=== PATIENT | female | born 1990 ===

== ENCOUNTER 2017-02-26 00:46 | Inpatient (IN) | payer MEDICAID, OTHER ==
[2017-02-26 01:07] VITALS: BMI 24.2
--- NOTE | 2017-02-26 01:29 | OBHP ---
Datetime: 02/26/2017 01:25 IP Adm Impression: Term, intrauterine ; Active labor IP Admit Plan: Admit to unit; Initiate labor protocol Admit Comment, IP Provider: chief complaint-contractions HPI 26 y/o at 38.1 wga with c/o contractions .Patient denies vaginal bleeding or loss fof flu id.Reports active movement course uncomplicated ; care in [facility] PMH denies PSH denies OBGYN HX ; [id number] Social hx denies tobacco,alcohol or illicit drug use Exam see exam section A/P 26 y/o at 38.1 wga by stated perri with c/o contractions.Active labor.GBS negative -admit -see orders Pelvic Type - PN: Adequate Extremities - PN: Normal Abdomen - PN: Normal Back - PN: Normal Lungs - PN: Normal Heart - PN: Normal Neurologic - PN: Normal General - PN: Normal Contraction Comments Provider: irregular Gestation - Est Wks by US: 38.1 IP Hx Assessment: The History has been Reviewed and is Current EGA AdmitDate IP: 38.1 Vital Signs Provider: Reviewed; Within Normal Limits IP Chief Complaint: Uterine contractions FHR Category Provider Fetus A: Category I Dilatation, Provider: 4 Effacement, Provider: 90 Station, Provider: -2 Genitourinary Exam: Normal DTRs - PN: Normal
[2017-02-26] MEDS ORDERED: Lactated Ringer's 1,000 ML IV SCH (01:30)
[2017-02-26 02:04] LABS: BASO % 0.4 % (0.0-2.0); EOS # 0.3 K/uL (0.0-0.7); EOS % 2.4 % (0.0-4.0); HEMOGLOBIN 11.2 g/dL (11.0-16.0); LYMPH # 3.2 K/uL (1.0-4.3); LYMPH % 27.3 % (20.0-40.0); MEAN CELL VOLUME 84.6 fL (81.0-99.0); MEAN CORPUSCULAR HEMOGLOBIN 27.4 pg (27.0-31.0); MEAN CORPUSCULAR HGB CONC 32.4 g/dL (33.0-37.0); MEAN PLATELET VOLUME 9.5 fL (7.2-11.7); MONO # 0.9 K/uL (0.0-0.8); MONO % 7.5 % (0.0-10.0); NEUT # 7.3 K/uL (1.8-7.0); NEUT % 62.4 % (50.0-75.0); NRBC % 0.1 % (0.0-2.0); RBC 4.1 Mil/uL (3.80-5.20); RED CELL DISTRIBUTION WIDTH 15.4 % (11.5-14.5); WHITE BLOOD COUNT 11.6 K/uL (4.8-10.8)
[2017-02-26 02:10] LABS: ALBUMIN 3.2 g/dL (3.5-5.0)
[2017-02-26 02:13] LABS: AST/SGOT 30 U/L (14-36); GFR AFRICAN-AMERICAN > 60; GFR NON-AFRICAN AMERICAN > 60; SQUAMOUS EPITHIAL 1 /hpf (0-5); URINE BILIRUBIN NEGATIVE (NEGATIVE); URINE BLOOD NEGATIVE (NEGATIVE); URINE CLARITY Clear (Clear); URINE COLOR Colorless (YELLOW); URINE GLUCOSE (UA) NORMAL (Normal); URINE LEUKOCYTE ESTERASE NEG Leu/uL (Negative); URINE NITRATE NEGATIVE (NEGATIVE); URINE PROTEIN NEGATIVE (NEGATIVE); URINE UROBILINOGEN NORMAL mg/dL (0.2-1.0)
[2017-02-26 02:14] LABS: ALT/SGPT 27 U/L (9-52); BLOOD UREA NITROGEN 11 mg/dL (7-17); CALCIUM 8.8 mg/dl (8.6-10.4)
[2017-02-26] MEDS ORDERED: Lidocaine 2% Inj (20ml) ONE (02:23)
--- NOTE | 2017-02-26 02:54 | OBDS ---
DELIVERY PERSONNEL Delivery Doctor: William Robin MD Nurse Aide: CINDY Munoz MATERNAL INFORMATION Delivery Anesthesia: None Medications in Delivery: pitocin 20 units, methergine 0.2 mg Estimated Blood Loss (ml): 300 Placenta Cultured: No Maternal Complications: None Provider Comments: Patient rapidly progressed to fully.Delivered a a viable male from JENNIFER wit h spontaneous delivery of the body.Cord clamped and cut.Cord blood collected.Baby taken to the warmer .placenta spontaneously delivered.Uterus noted to be boggy.Im metehrgine 0.2 mg im given after which the uterus was noted to be firm.second degree perineal laceration and right and left labial laceratio n repaired with 2-0 chromic.Fundus firm.patient stable LABOR SUMMARY EDC: 03/11/2017 00:00 No. Babies in Womb: 1 Attempted: No Labor Anesthesia: None LABOR INFORMATION Reason for Induction: Not Applicable Onset of Labor: 02/25/2017 18:00 Complete Dilatation: 02/26/2017 02:13 Other Ripening Agents: n/a Oxytocin: N/A Group B Beta Strep: Negative Antibiotics # of Doses: 0 Steroids Given: None Reason Steroids Not Administered: Not Applicable MEMBRANES Membranes Rupture Method: Spontaneous Rupture of Membranes: 02/26/2017 02:14 Length of Rupture (hrs): 18.02 Amniotic Fluid Color: Light Meconium Amniotic Fluid Amount: Moderate Amniotic Fluid Odor: Normal STAGES OF LABOR Stage 1 hrs: 8 Stage 1 min: 13 Stage 2 hrs: 18 Stage 2 min: 2 Stage 3 hrs: -17 Stage 3 min: -52 Total Time in Labor hrs: 8 Total Time in Labor min: 23 VAGINAL DELIVERY Episiotomy: None Laceration Extension: Second Degree Laceration Type: Perineal Other Laceration: right and left labial Laceration Repair: Yes Laceration Repair Note: second degree perineal laceration and right and left labial laceration repai red with 2-0 chromic Sponge Count Correct: Yes; Vaginal Sweep Performed Sharps Count Correct: Yes BABY A INFORMATION Delivery Date/Time: 02/26/2017 20:15 Method of Delivery: Vaginal Born in Route : No : N/A Forceps: N/A Vacuum Extraction: N/A Shoulder Dystocia : No SHOULDER DYSTOCIA BABY A Infant Delivery Date/Time: 02/26/2017 20:15 PRESENTATION/POSITION BABY A Presentation: Cephalic Cephalic Presentation: Vertex Vertex Position: Right Occipital Anterior Breech Presentation: N/A PLACENTA INFORMATION BABY A Placenta Delivery Time : 02/26/2017 02:23 Placenta Method of Delivery: Spontaneous Placenta Status: Delivered SCORES BABY A Heart Rate 1 min: >100 bpm Resp Effort 1 min: Good Cry Reflex Irritability 1 min: Cough or Sneeze or Pulls Away Muscle Tone 1 min: Active Motion Color 1 min: Body Challenge[place], Extremities Blue SCORE 1 MIN: 9 Heart Rate 5 min: >100 bpm Resp Effort 5 min: Good Cry Reflex Irritability 5 min: Cough or Sneeze or Pulls Away Muscle Tone 5 min: Active Motion Color 5 min: Body Challenge[place], Extremities Blue SCORE 5 MIN: 9 INFANT INFORMATION BABY A Gestational Age at Delivery: 38.1 Gestational Status: Term Outcome : Liveborn Infant Condition : Stable Sex: Male IDENTIFICATION/MEDS BABY A ID Band Number: [id number] ID Band Location: Left Leg; Left Arm Sensor Applied: Yes Sensor Number: [id number] Sensor Location : Cord Clamp Vitamin K Given : Aquamephyton 1 mg IM Erythromycin Given: Given Both Eyes WEIGHT/LENGTH BABY A Infant Birthweight (gms): 2815 Infant Weight (lb): 6 Weight (oz): 3 Infant Length Inches: 18.25 Length cms: 46.4 CORD INFORMATION BABY A No. Cord Vessels: 3 Nuchal Cord : N/A Nuchal Cord Other: 0 True Knot: 0 Cord Blood Taken: Yes Infant Suction: None ASSESSMENT BABY A Complications: None Physical Findings at Delivery: Other
[2017-02-26] MEDS ORDERED: Acetaminophen-Codeine 300/30 mg Tab PO PRN (02:55)
[2017-02-26] MEDS ORDERED: Benzocaine/Menthol 20%-0.5% Topical Spray (60 ml) TOP PRN (02:55)
[2017-02-26] MEDS ORDERED: ceFAZolin IV 2 gm in Dextrose 1 GM/50 ML BAG IVPB SCH (03:00)
[2017-02-26] MEDS ORDERED: ceFAZolin IV 2 gm in Dextrose 1 GM/50 ML BAG IVPB ONE (03:00)
--- NOTE | 2017-02-26 07:51 | OBPPN ---
Datetime: 02/26/2017 07:47 PP Pain Prov: Within normal limits PP Nausea Prov: Denies PP Flatus Prov: Yes PP Abdomen/Uterus Prov: Normal PP Lochia Prov: Normal PP Extremities Prov: Normal PP Comments Phys Exam Prov: fudus below umblicus ext no edema,no calf ten PP Impression Prov: Normal progression PP Plan Prov: Continue present management PP Progress Note Prov: pt was seen at bed side, pain under control,no n/v, tolerating deit,voiding,m in lochia, flatus+ ppd#1 s/p cont care pain management encourage ambulation Vital Signs Provider PP: Reviewed; Within Normal Limits
[2017-02-26] MEDS ORDERED: Oxycodone/Acetaminophen 5/325 mg Tab PO PRN (08:29)
[2017-02-26] MEDS: Acetaminophen-Codeine 300/30 mg Tab PO PRN ×2 (08:43→14:38)
[2017-02-26] MEDS: Multiple Vitamins Tab PO SCH (10:16)
[2017-02-27 07:55] LABS: BASO % 0.4 % (0.0-2.0); EOS # 0.3 K/uL (0.0-0.7); EOS % 2.7 % (0.0-4.0); HEMOGLOBIN 10.5 g/dL (11.0-16.0); LYMPH # 2.8 K/uL (1.0-4.3); LYMPH % 24.8 % (20.0-40.0); MEAN CELL VOLUME 84.7 fL (81.0-99.0); MEAN CORPUSCULAR HEMOGLOBIN 27.6 pg (27.0-31.0); MEAN CORPUSCULAR HGB CONC 32.6 g/dL (33.0-37.0); MEAN PLATELET VOLUME 8.7 fL (7.2-11.7); MONO # 0.8 K/uL (0.0-0.8); MONO % 7.1 % (0.0-10.0); NEUT # 7.2 K/uL (1.8-7.0); RBC 3.79 Mil/uL (3.80-5.20); RED CELL DISTRIBUTION WIDTH 15.6 % (11.5-14.5); WHITE BLOOD COUNT 11.2 K/uL (4.8-10.8)
[2017-02-27] MEDS: Acetaminophen-Codeine 300/30 mg Tab PO PRN ×2 (10:01→17:05)
[2017-02-27] MEDS: Multiple Vitamins Tab PO SCH (10:02)
--- NOTE | 2017-02-27 11:45 | OBPPN ---
Datetime: 02/27/2017 08:36 PP Pain Prov: Within normal limits PP Nausea Prov: Denies PP Flatus Prov: Yes PP Heart Prov: Normal PP Lungs Prov: Normal PP Abdomen/Uterus Prov: Normal PP Lochia Prov: Normal PP CVA Tenderness Prov: Normal PP Extremities Prov: Normal PP C/S Incision Prov: Not Applicable PP Progress Prov: Normal PP Impression Prov: Normal progression PP Plan Prov: Continue present management PP Progress Note Prov: S-patient denies any complaints.denies nausea, vomiting, headache, chest pain , shortness of breath, numbness or tingling in hands and feet O-VSS afebrile Abdomen soft and nontener Fundus firm and below umbilcius extremities no calf tenderness A/P Patient s/p vaginal delivery ppd 1 doing well -continue routine care Vital Signs Provider PP: Reviewed; Within Normal Limits
[2017-02-28 08:42] VITALS: BP 103/71; PULSE 70; RESP 18; TEMP 97.8; O2SAT 98
[2017-02-28] MEDS: Multiple Vitamins Tab PO SCH (10:03)
--- NOTE | 2017-02-28 19:59 | OBDCSUM ---
Datetime: 02/28/2017 08:18 Discharged to, Provider: Home Follow up at, Provider: dr mcduffie Disch Instr Activity: Normal activity Disch Instr Diet: Regular Discharge Diet restrict Prov: none Discharge Diagnosis, Provider: Term Delivered Discharge Time: 02/28/2017 10:00 Follow up in weeks, Provider: 6 weeks (mason uribe) Disch Referrals: None Contraception discussed, Prov: Yes Disch Activity Restrictions: No exercising; No lifting; No sexual activity; Nothing in vagina - Inte rcourse, tampons, douche Discharge Diagnosis Prov Other: Anemia Contraception counseling Contraception after Delivery: IUD
--- NOTE | 2017-02-28 19:59 | OBPPN ---
Datetime: 02/28/2017 19:49 PP Pain Prov: Within normal limits PP Nausea Prov: Denies PP Flatus Prov: Yes PP BM Prov: Yes PP Breasts Prov: Normal PP Heart Prov: Normal PP Lungs Prov: Normal PP Abdomen/Uterus Prov: Normal PP Lochia Prov: Normal PP Vulva/Perineum Prov: Not Done PP CVA Tenderness Prov: Normal PP Extremities Prov: Normal PP C/S Incision Prov: Not Applicable PP Progress Prov: Normal PP Comments Phys Exam Prov: Breasts: no cracked nipples Abdomen: soft, non distended. fundus firm, mobile, nontender, 2 FB below umbilicus. Minimal lochia rubra All other systems reviewed and are negative PP Impression Prov: Normal progression PP Plan Prov: Discharge PP Progress Note Prov: Patient was seen and evaluated at approximately 0735 hours: received in chair . exclusively. Denies nausea or vomiting; voiding and ambulating without difficulty. P.E.: as above. WD in NAD. Awake, alert, oriented to time, person and place. Pleasant and cooperat olga - PPD#1 H/H 10.5/32.1 Rh(+) Assessment: PPD#2 26 y.o. P2, S/P . Afebrile, vital signs stable. Anemia - asymptomatic and hem odynamically stable. Interested in IUD for contraception. Clinically stable. Plan: 1) Discharge home 2) See full discharge instrucitons Vital Signs Provider PP: Reviewed; Within Normal Limits
== END 2017-02-28 11:45 | disposition home or self-care (01) | DRG 373 ==
LOC: C.EROB 00:46 → C.4D 01:23 → C.4M 07:57
PROVIDERS: ADMIT Student in an Organized Health Care Education/Training Program; ATTEND Student in an Organized Health Care Education/Training Program
PROC: 10E0XZZ Delivery of Products of Conception, External Approach (ICD-10-PCS; principal; 2017-02-26)
PROC: 0KQM0ZZ Repair Perineum Muscle, Open Approach (ICD-10-PCS; 2017-02-26)
DX: O77.0 Labor and delivery complicated by meconium in amniotic fluid (principal); O90.81 Anemia of the puerperium; O62.2 Other uterine inertia; O70.1 Second degree perineal laceration during delivery; Z3A.38 38 weeks gestation of pregnancy; Z37.0 Single live birth

== ENCOUNTER 2018-03-31 20:42 | Observation (INO) | payer OTHER ==
[2018-03-31 20:42] VITALS: BMI 21.7
[2018-03-31] MEDS ORDERED: Sodium Chloride 0.9% 1,000 ML IV ONE (21:56)
[2018-03-31 21:59] LABS: BASO # 0.1 K/uL (0.0-0.2); EOS # 0.3 K/uL (0.0-0.7); HEMOGLOBIN 13.5 g/dL (11.0-16.0); LYMPH # 3.1 K/uL (1.0-4.3); LYMPH % 37.9 % (20.0-40.0); MEAN CELL VOLUME 88.3 fL (81.0-99.0); MEAN CORPUSCULAR HEMOGLOBIN 29.7 pg (27.0-31.0); MEAN CORPUSCULAR HGB CONC 33.6 g/dL (33.0-37.0); MONO # 0.5 K/uL (0.0-0.8); MONO % 6.5 % (0.0-10.0); NEUT # 4.1 K/uL (1.8-7.0); NEUT % 50.6 % (50.0-75.0); NRBC % 0.2 % (0.0-2.0); RBC 4.56 Mil/uL (3.80-5.20); RED CELL DISTRIBUTION WIDTH 13.5 % (11.5-14.5); WHITE BLOOD COUNT 8.1 K/uL (4.8-10.8)
--- NOTE | 2018-03-31 22:00 | C.PDOC ---
History Of Present Illness Patient comes to ER with complaints of abdominal pain with associated nausea, vomiting, diarrhea and weight loss. She states she is currently undergoing treatment for H. Pylori and is on her second day of antibiotics. Otherwise, no fever, chills, chest pain or shortness of breath. Time Seen by Provider: 03/31/18 22:00 Chief Complaint (Nursing): Abdominal Pain History Per: Patient History/Exam Limitations: no limitations Onset/Duration Of Symptoms: Days (2) Current Symptoms Are (Timing): Still Present Context: Other Severity: Moderate Pain Scale Rating Of: 4 Location Of Pain/Discomfort: Diffuse Radiation Of Pain To:: None Quality Of Discomfort: "Pain" Associated Symptoms: Nausea, Vomiting, Diarrhea. denies: Fever, Chills, Chest Pain Exacerbating Factors: None Alleviating Factors: None Last Bowel Movement: Today Additional History Per: Patient Abnormal Vaginal Bleeding: No Past Medical History Reviewed: Historical Data, Nursing Documentation, Vital Signs Vital Signs: Last Vital Signs Temp 98.5 F 04/01/18 03:37 Pulse 74 04/01/18 03:37 Resp 18 04/01/18 03:37 BP 94/58 L 04/01/18 03:37 Pulse Ox 100 04/01/18 04:07 - Medical History PMH: No Chronic Diseases Denies: Chronic Kidney Disease Surgical History: No Surg Hx - [facility] Procedures DELIVERY OF PRODUCTS OF CONCEPTION, EXTERNAL APPROACH (02/26/17) REPAIR PERINEUM MUSCLE, OPEN APPROACH (02/26/17) Family History: States: No Known Family Hx - Social History Hx Tobacco Use: No Hx Alcohol Use: No Hx Substance Use: No - Immunization History Hx Tetanus Toxoid Vaccination: No Hx Influenza Vaccination: No Hx Pneumococcal Vaccination: No Review Of Systems Constitutional: Negative for: Fever, Chills Cardiovascular: Negative for: Chest Pain Respiratory: Negative for: Shortness of Breath Gastrointestinal: Positive for: Nausea, Vomiting, Abdominal Pain, Diarrhea. Negative for: Constipation Genitourinary: Negative for: Dysuria, Frequency, Hematuria Musculoskeletal: Negative for: Back Pain Skin: Negative for: Rash Neurological: Negative for: Weakness Psych: Negative for: Anxiety Physical Exam - Physical Exam Appears: Non-toxic, No Acute Distress Skin: Warm Head: Normacephalic Eye(s): bilateral: Normal Inspection Oral Mucosa: Moist Neck: Supple Chest: Symmetrical Cardiovascular: Rhythm Regular Respiratory: No Rales, No Rhonchi, No Wheezing Gastrointestinal/Abdominal: Soft, Tenderness (diffuse tenderness, more present on left upper quadrant), No Distention, No Guarding, No Rebound Back: Normal Inspection Extremity: Normal ROM, No Pedal Edema Extremity: Bilateral: Atraumatic Neurological/Psych: Oriented x3 Gait: Steady ED Course And Treatment - Laboratory Results Result Diagrams: 03/31/18 21:54 03/31/18 21:54 O2 Sat by Pulse Oximetry: 100 (RA) Pulse Ox Interpretation: Normal - CT Scan/US CT Abdomen/Pelvis Other Rad Studies (CT/US): Radiology Report Reviewed CT/US Interpretation: FINDINGS: Lung bases: Unremarkable. No mass. No consolidation. ABDOMEN: Liver: Unremarkable. No mass. Gallbladder and bile ducts: Gallbladder thickening and trace pericholecystic change suggest acute. cholecystitis. No calcified gallstone. No ductal dilation. Pancreas: Unremarkable. No mass. No ductal dilation. Spleen: Unremarkable. No splenomegaly. Adrenals: Unremarkable. No mass. Kidneys and ureters: Unremarkable. No solid mass. No hydronephrosis. Stomach and bowel: Unremarkable. No obstruction. No mucosal thickening. PELVIS: Appendix: No findings to suggest acute appendicitis. Bladder: Unremarkable. No mass. Reproductive: Unremarkable as visualized. ABDOMEN and PELVIS: Intraperitoneal space: Unremarkable. No free air. No significant fluid collection. Bones/joints : No acute fracture. No dislocation. Soft tissues: Unremarkable. Vasculature: Unremarkable. No abdominal aortic aneurysm. Lymph nodes: Unremarkable. No enlarged lymph nodes. Tubes, lines and devices: Intrauterine device is present. IMPRESSION: Gallbladder thickening and trace pericholecystic change suggest acute cholecystitis. No calcified. gallstone. Progress Note: Labs and UA ordered. Patient given Zofran, Protonix and IV fluids. Disposition Discussed With : Phyllis Hickey Comment: accepted the pt on her service and took over the care at 4:16 AM Doctor Will See Patient In The: ED Counseled Patient/Family Regarding: Studies Performed, Diagnosis - Disposition Disposition: HOSPITALIZED Disposition Time: 22:00 Condition: FAIR Forms: [facility] (Malawian) - POA Present On Arrival: Poor Glycemic Control - Clinical Impression Clinical Impression: Abdominal pain, Biliary colic, Acute cholecystitis - Scribe Statement The provider has reviewed the documentation as recorded by the Esa Hirsch Provider Attestation: All medical record entries made by the Scribe were at my direction and personally dictated by me. I have reviewed the chart and agree that the record accurately reflects my personal performance of the history, physical exam, medical decision making, and the department course for this patient. I have also personally directed, reviewed, and agree with the discharge instructions and disposition. Decision To Admit - Pt Status Changed To: Hospital Disposition Of: Inpatient - Admit Certification Admit to Inpatient:: After my assessment, the patient will require hospitalization for at least two midnights. This is because of the severity of symptoms shown, intensity of services needed, and/or the medical risk in this patient being treated as an outpatient. - InPatient: Physician Admission Certification:: After my assessment, the patient will require hospitalization for at least two midnights. This is because of the severity of symptoms shown, intensity of services needed, and/or the medical risk in this patient being treated as an outpatient. - . Bed Request Type: Regular Admitting Physician: Phyllis Hickey Patient Diagnosis: Abdominal pain, Biliary colic, Acute cholecystitis
[2018-03-31 22:17] LABS: ALB/GLOB RATIO 1.4 (1.0-2.1); ALBUMIN 4.4 g/dL (3.5-5.0); ALT/SGPT 89 U/L (9-52); AST/SGOT 101 U/L (14-36); BLOOD UREA NITROGEN 13 mg/dL (7-17); CALCIUM 8.9 mg/dl (8.6-10.4); GFR NON-AFRICAN AMERICAN > 60
[2018-03-31 22:19] LABS: SQUAMOUS EPITHIAL 7 /hpf (0-5); URINE BILIRUBIN NEGATIVE (NEGATIVE); URINE BLOOD NEGATIVE (NEGATIVE); URINE CLARITY Clear (Clear); URINE COLOR Yellow (YELLOW); URINE GLUCOSE (UA) NORMAL (Normal); URINE LEUKOCYTE ESTERASE TRACE Leu/uL (Negative); URINE PROTEIN NEGATIVE (NEGATIVE)
[2018-03-31] MEDS ORDERED: Sodium Chloride 0.9% 1,000 ML ONE (22:25)
[2018-04-01] MEDS ORDERED: Iodixanol 320 MG/ML 100 ML BOTTLE IV ONE (01:19)
[2018-04-01] MEDS ORDERED: Piperacillin/Tazobact 3.375 gm 100 ML IVPB STA (04:18)
[2018-04-01] MEDS ORDERED: Piperacillin/Tazobact 3.375 gm 100 ML IVPB ONE (04:24)
[2018-04-01] MEDS ORDERED: Lactated Ringer's 1,000 ML IV SCH (06:30)
[2018-04-01] MEDS ORDERED: Morphine 4 MG/ML VIAL IVP SCH (06:30)
[2018-04-01 06:44] LABS: BASO # 0.1 K/uL (0.0-0.2); BASO % 1.1 % (0.0-2.0); EOS # 0.1 K/uL (0.0-0.7); EOS % 1.3 % (0.0-4.0); HEMOGLOBIN 13.1 g/dL (11.0-16.0); LYMPH # 1.6 K/uL (1.0-4.3); LYMPH % 27.7 % (20.0-40.0); MEAN CELL VOLUME 87.5 fL (81.0-99.0); MEAN CORPUSCULAR HEMOGLOBIN 30.2 pg (27.0-31.0); MEAN CORPUSCULAR HGB CONC 34.5 g/dL (33.0-37.0); MEAN PLATELET VOLUME 7.9 fL (7.2-11.7); MONO # 0.6 K/uL (0.0-0.8); MONO % 10.9 % (0.0-10.0); NEUT # 3.5 K/uL (1.8-7.0); NRBC % 0.1 % (0.0-2.0); RBC 4.34 Mil/uL (3.80-5.20); RED CELL DISTRIBUTION WIDTH 13.7 % (11.5-14.5); WHITE BLOOD COUNT 5.9 K/uL (4.8-10.8)
[2018-04-01 07:02] LABS: ALB/GLOB RATIO 1.5 (1.0-2.1); ALBUMIN 4.3 g/dL (3.5-5.0); ALT/SGPT 613 U/L (9-52); BLOOD UREA NITROGEN 7 mg/dL (7-17); GFR NON-AFRICAN AMERICAN > 60
[2018-04-01 07:09] LABS: AST/SGOT 1082 U/L (14-36)
--- NOTE | 2018-04-01 08:56 | CP.PCM.HP ---
History of Present Illness - History of Present Illness History of Present Illness: History and Physical for Dr. Hickey CC: abdominal pain Late Entry, patient seen and examined in the ED at 0445 Pt is a 27F with PMH of newly diagnosed gastritis with H pylori at [facility] who initiated triple therapy as an outpatient 2 days ago who presents to the ED with upper abdominal pain for acute worsened the day before with nausea and vomiting 2-3 times non-bloody, non-bilious emesis. Patient states that she has had this epigastric pain for 1 month off and on with non- bloody diarrhea, but that the pain acute worsened yesterday, so she came the ER. Pain radiates to her bilateral shoulders. Denies any fevers, chills, melena , hematochezia, or any other symptoms. Pain improved with IV protonix PMH: Gastritis, H. Pylori PSH: denies ALL: ibuprofen--rash Social: Denies any substance use Present on Admission - Present on Admission Any Indicators Present on Admission: No Review of Systems - Review of Systems All systems: reviewed and no additional remarkable complaints except (as per HPI ) Past Patient History - Infectious Disease Hx of Infectious Diseases: None - Past Medical History & Family History Past Medical History?: Yes Past Family History: Reviewed and not pertinent - Past Social History Smoking Status: Never Smoked Alcohol: None Drugs: Denies - CARDIAC Hx Cardiac Disorders: No - PULMONARY Hx Respiratory Disorders: No - NEUROLOGICAL Other/Comment: epilepsy - HEENT Hx HEENT Problems: No - RENAL Hx Chronic Kidney Disease: No - ENDOCRINE/METABOLIC Hx Endocrine Disorders: No - HEMATOLOGICAL/ONCOLOGICAL Hx Blood Disorders: No - INTEGUMENTARY Hx Dermatological Problems: No - MUSCULOSKELETAL/RHEUMATOLOGICAL Hx Musculoskeletal Disorders: No - GASTROINTESTINAL Hx Gastrointestinal Disorders: No - GENITOURINARY/GYNECOLOGICAL Hx Genitourinary Disorders: No - PSYCHIATRIC Hx Substance Use: No - SURGICAL HISTORY Hx Surgeries: No - ANESTHESIA Hx Anesthesia: No Meds Allergies/Adverse Reactions: Allergies Allergy/AdvReac Type Severity Reaction Status Date / Time ibuprofen Allergy Intermediate SKIN RASHES Verified 03/31/18 20:57 Physical Exam - Constitutional Appears: Well, Non-toxic, No Acute Distress - Head Exam Head Exam: ATRAUMATIC, NORMOCEPHALIC - Eye Exam Eye Exam: Normal appearance. absent: Conjunctival injection, Scleral icterus - ENT Exam ENT Exam: Mucous Membranes Moist, Normal Oropharynx - Respiratory Exam Respiratory Exam: NORMAL BREATHING PATTERN. absent: Accessory Muscle Use, Respiratory Distress - Cardiovascular Exam Cardiovascular Exam: RRR - GI/Abdominal Exam GI & Abdominal Exam: Distended, Soft, Tenderness (epigastrium). absent: Rebound Additional comments: negative yoder's, no RUQ tenderness - Extremities Exam Extremities exam: Positive for: pedal pulses present. Negative for: calf tenderness, pedal edema - Back Exam Back exam: absent: CVA tenderness (L), CVA tenderness (R) - Neurological Exam Neurological exam: Alert, Oriented x3 - Psychiatric Exam Psychiatric exam: Normal Affect, Normal Mood - Skin Skin Exam: Dry, Intact, Normal Color, Warm Results - Vital Signs Recent Vital Signs: Last Vital Signs Temp 99.0 F 04/01/18 07:30 Pulse 67 04/01/18 07:30 Resp 18 04/01/18 07:30 BP 97/60 L 04/01/18 07:30 Pulse Ox 100 04/01/18 07:30 - Labs Result Diagrams: 04/01/18 06:40 04/01/18 06:40 Labs: Laboratory Results - last 24 hr 03/31/18 03/31/18 03/31/18 21:54 21:54 21:54 WBC 8.1 RBC 4.56 Hgb 13.5 Hct 40.3 MCV 88.3 MCH 29.7 MCHC 33.6 RDW 13.5 Plt Count 294 MPV 8.0 Neut % (Auto) 50.6 Lymph % (Auto) 37.9 [place] % (Auto) 6.5 Eos % (Auto) 4.0 Baso % (Auto) 1.0 Neut # (Auto) 4.1 Lymph # (Auto) 3.1 [place] # (Auto) 0.5 Eos # (Auto) 0.3 Baso # (Auto) 0.1 Sodium 143 Potassium 3.8 Chloride 105 Carbon Dioxide 22 Anion Gap 20 BUN 13 Creatinine 0.6 L Est GFR ( Amer) > 60 Est GFR (Non-Af Amer) > 60 Random Glucose 110 H Calcium 8.9 Phosphorus Magnesium Total Bilirubin 0.4 AST 101 H ALT 89 H D Alkaline Phosphatase 142 H Total Protein 7.5 Albumin 4.4 Globulin 3.1 Albumin/Globulin Ratio 1.4 Lipase Urine Color Yellow Urine Clarity Clear Urine pH 5.0 Ur Specific [place] 1.018 Urine Protein Negative Urine Glucose (UA) Normal Urine Ketones Negative Urine Blood Negative Urine Nitrate Negative Urine Bilirubin Negative Urine Urobilinogen 2.0 H Ur Leukocyte Esterase Trace Urine WBC (Auto) 1 Urine RBC (Auto) < 1 Ur Squamous Epith Cells 7 H 03/31/18 04/01/18 04/01/18 22:28 06:40 06:40 WBC 5.9 RBC 4.34 Hgb 13.1 Hct 38.0 MCV 87.5 MCH 30.2 MCHC 34.5 RDW 13.7 Plt Count 298 MPV 7.9 Neut % (Auto) 59.0 Lymph % (Auto) 27.7 [place] % (Auto) 10.9 H Eos % (Auto) 1.3 Baso % (Auto) 1.1 Neut # (Auto) 3.5 Lymph # (Auto) 1.6 [place] # (Auto) 0.6 Eos # (Auto) 0.1 Baso # (Auto) 0.1 Sodium Potassium Chloride Carbon Dioxide Anion Gap BUN Creatinine Est GFR ( Amer) Est GFR (Non-Af Amer) Random Glucose Calcium Phosphorus 4.4 Magnesium 1.9 Total Bilirubin AST ALT Alkaline Phosphatase Total Protein Albumin Globulin Albumin/Globulin Ratio Lipase 80 Urine Color Urine Clarity Urine pH Ur Specific [place] Urine Protein Urine Glucose (UA) Urine Ketones Urine Blood Urine Nitrate Urine Bilirubin Urine Urobilinogen Ur Leukocyte Esterase Urine WBC (Auto) Urine RBC (Auto) Ur Squamous Epith Cells 04/01/18 06:40 WBC RBC Hgb Hct MCV MCH MCHC RDW Plt Count MPV Neut % (Auto) Lymph % (Auto) [place] % (Auto) Eos % (Auto) Baso % (Auto) Neut # (Auto) Lymph # (Auto) [place] # (Auto) Eos # (Auto) Baso # (Auto) Sodium 142 Potassium 3.8 Chloride 106 Carbon Dioxide 21 L Anion Gap 19 BUN 7 Creatinine 0.6 L Est GFR ( Amer) > 60 Est GFR (Non-Af Amer) > 60 Random Glucose 98 Calcium 9.0 Phosphorus Magnesium Total Bilirubin 1.6 H AST 1082 H ALT 613 H D Alkaline Phosphatase 203 H D Total Protein 7.2 Albumin 4.3 Globulin 2.9 Albumin/Globulin Ratio 1.5 Lipase Urine Color Urine Clarity Urine pH Ur Specific [place] Urine Protein Urine Glucose (UA) Urine Ketones Urine Blood Urine Nitrate Urine Bilirubin Urine Urobilinogen Ur Leukocyte Esterase Urine WBC (Auto) Urine RBC (Auto) Ur Squamous Epith Cells - Imaging and Cardiology CT scan - abdomen Status: Image reviewed by me, Report reviewed by me Additional comment: possible trace pericholecystic fluid, mildly thickened gallbladder wall US - abdomen Status: Image reviewed by me, Report reviewed by me Additional comment: gallbladder with multiple stones & thickened wall Assessment & Plan (1) Cholelithiasis Status: Acute Priority: High (2) Gastritis, Helicobacter pylori Status: Acute Priority: Medium (3) Abdominal pain Status: Acute Priority: High - Assessment and Plan (Free Text) Assessment: 27F with PMH of current H. Pylori being treated with antibiotics and PPI and cholelithiasis vs acute cholecystitis vs gastritis flare Plan: F/U official reports of the CT and the ultrasound Trend CBC and CMP Monitor abdominal exam and vitals Admit to med/surgery as observation IVF IV antibiotics PRN pain and nausea medication Continue outpatient H. Pylori therapy Re-evaluate patient's clinical picture and labs to evaluate for acute cholecystitis vs symptomatic cholelithiasis vs gastritis--Plans for conservative management vs OR pending clinical picture Further recommendations per Dr. Ruperto Jerome, PGY2 - Date & Time Date: 04/01/18 Time: 04:45
--- NOTE | 2018-04-01 09:32 | CT ---
Date of service: 04/01/2018 PROCEDURE: CT Abdomen and Pelvis without intravenous contrast HISTORY: Abdominal pain COMPARISON: CT abdomen and pelvis dated 12/17/2015 TECHNIQUE: Multiple contiguous axial images were performed through the abdomen and pelvis with the use of intravenous contrast. Subsequently, sagittal and coronal reformatted images were obtained. Radiation dose: Total exam DLP = 220 mGy-cm. This CT exam was performed using one or more of the following dose reduction techniques: Automated exposure control, adjustment of the mA and/or kV according to patient size, and/or use of iterative reconstruction technique. FINDINGS: LOWER THORAX: Unremarkable. LIVER: Unremarkable. No gross lesion or ductal dilatation. GALLBLADDER AND BILE DUCTS: Gallbladder wall thickening and trace pericholecystic fluid suggestive for acute cholecystitis. No gross calcified gallstone identified. No ductal dilatation. PANCREAS: Unremarkable. No gross lesion or ductal dilatation. SPLEEN: Unremarkable. ADRENALS: Unremarkable. No mass. KIDNEYS AND URETERS: Unremarkable. No hydronephrosis. No solid mass. VASCULATURE: Unremarkable. No aortic aneurysm. BOWEL: Unremarkable. No obstruction. No gross mural thickening. APPENDIX: No findings to suggest acute appendicitis. PERITONEUM: Unremarkable. No free fluid. No free air. LYMPH NODES: Unremarkable. No enlarged lymph nodes. BLADDER: Unremarkable. REPRODUCTIVE: Unremarkable. BONES: No acute fracture. OTHER FINDINGS: Intrauterine device is present. IMPRESSION: Gallbladder wall thickening and trace pericholecystic fluid suggestive for possible acute cholecystitis. No gross calcified gallstone identified. Correlation with right upper quadrant abdominal ultrasound may helpful further evaluation if clinically indicated. Additional findings as above. These findings were preliminarily reported at 4 a.m. on 04/01/[address] Maged Lee from [employer].
--- NOTE | 2018-04-01 09:54 | US ---
Right upper quadrant abdominal ultrasound History: Cholelithiasis. Comparison: CT of the abdomen and pelvis dated 04/01/2018 Technique: Real-time sonography was performed through the right upper quadrant of the abdomen. Findings Liver: 14.5 centimeters in length. Normal echogenicity. Gallbladder: Gallbladder appears packed with gallstones with a somewhat masslike consolidation suggestive for prominent cholelithiasis. Gallbladder wall thickening measuring up to 5 millimeters. Associated gallbladder wall edema. Common bile duct measures 3 millimeters. Limited visualization of the pancreas. Visualized aorta and IVC are preserved. Right kidney: 8.7 x 3.5 x 4.8 centimeters. No calculi or hydronephrosis. Impression: Prominent cholelithiasis with a somewhat masslike consolidation with thickening of the gallbladder wall concerning for acute cholecystitis. Clinical correlation. These findings were preliminarily reported at 7:12 a.m. on 04/01/[address] Didier Nieves from [facility].
[2018-04-01] MEDS: Pantoprazole 40 mg EC Tab PO SCH ×2 (10:59→18:05)
[2018-04-01] MEDS ORDERED: Propofol 10 mg/ml Inj (20 ML) ONE (13:07)
[2018-04-01] MEDS ORDERED: Midazolam 2 MG/2 ML VIAL ONE (13:07)
[2018-04-01] MEDS ORDERED: Rocuronium 10 mg/ml (10 ml) ONE (13:38)
[2018-04-01] MEDS ORDERED: Succinylcholine Chloride 20 mg/ml Syr (5 ml) IV ONE (13:38)
[2018-04-01] MEDS ORDERED: Lidocaine Hydrochloride 5 ML INJ ONE (13:38)
[2018-04-01] MEDS ORDERED: Lactated Ringer's 1,000 ML IV ONE (14:22)
[2018-04-01] MEDS: HYDROmorphone 0.5 mg/0.5 ml ISec IVP PRN ×2 (14:50→15:05)
[2018-04-01] MEDS ORDERED: DiphenhydrAMINE 50 mg/ml Inj IVP STA (16:05)
[2018-04-01] MEDS ORDERED: DiphenhydrAMINE 50 mg/ml Inj ONE (16:12)
[2018-04-01] MEDS: Lactated Ringer's 1,000 ML IV SCH ×2 (17:00→21:39)
[2018-04-01 17:01] VITALS: RESP 20
--- NOTE | 2018-04-01 17:05 | PCM.SURG1 ---
Surgeon's Initial Post Op Note - Surgeon's Notes Surgeon: Tracey Hickey Building Construction Inspector: Romario Mejia PGY3 Type of Anesthesia: General Endo Anesthesia Administered By: Tano Pre-Operative Diagnosis: cholelithiasis Operative Findings: multiple gallstones Post-Operative Diagnosis: cholelithiasis Operation Performed: laparoscopic cholecystectomy Specimen/Specimens Removed: gallbladder Estimated Blood Loss: EBL {In ML}: 10 Blood Products Given: N/A Drains Used: No Drains Post-Op Condition: Good Date of Surgery/Procedure: 04/01/18 Time of Surgery/Procedure: 14:00
[2018-04-01] MEDS: Morphine 4 MG/ML VIAL IVP PRN (19:29)
[2018-04-02] MEDS: Morphine 4 MG/ML VIAL IVP PRN ×2 (00:23→09:39)
[2018-04-02 00:27] VITALS: O2SAT 99
[2018-04-02] MEDS: Lactated Ringer's 1,000 ML IV SCH ×2 (04:57→10:45)
--- NOTE | 2018-04-02 05:06 | OP ---
Copied To: Phyllis Hickey MD Attending MD: Phyllis Hickey MD PROCEDURE DATE: 04/01/2018 PREOPERATIVE DIAGNOSIS: Cholelithiasis. POSTOPERATIVE DIAGNOSIS: Cholelithiasis. PROCEDURE: Laparoscopic cholecystectomy. SURGEON: Phyllis Hickey MD. RESOLUTION MANAGER: Jovanny Mejia DO. ANESTHESIA: General. ANESTHESIA ADMINISTERED BY: Dr. Freedman DESCRIPTION OF OPERATION: With the patient in the supine position under adequate general anesthesia, the abdomen was prepped and draped in the usual sterile manner. Veress needle puncture was performed at the umbilicus with insufflation to 15 cm water pressure of CO2 and a 10 mm laparoscopic trocar was inserted via an infraumbilical incision. Under direct vision, additional trocars were inserted in the epigastrium and right costal margin. The gallbladder was visualized. It was not acutely inflamed although there were adhesions to the peritoneal surface of the gallbladder consistent with recent inflammation. The gallbladder fundus was grasped and elevated. A number of lobulated stones were noted within the gallbladder including in the area of the infundibulum. The infundibular stones were elevated out of the infundibulum, and the infundibulum was grasped and retracted laterally. The infundibulum was noted to be a elongated and tortuous, and the cystic duct was carefully dissected and identified freeing up areas itself and the gallbladder was then cleared circumferential. The cystic duct was then followed proximally into the gallbladder and distally down towards the common bile duct. The cystic artery was also identified, and the anterior branch of the cystic artery was triply clipped and divided to allow full identification of the cystic duct. A cystic duct was then completely dissected and triply clipped and divided, and the gallbladder was dissected free of the liver bed using electrocautery. The posterior branch of the cystic artery was also identified within the peritoneal fold and this also was triply clipped and divided. The liver bed was inspected for hemostasis and the dissection was completed. The gallbladder was placed in a specimen retrieval bag and removed via the umbilical port site. The pneumoperitoneum was released and the trocars removed. The umbilical port site was closed with a [id number] fascial suture of 0 Vicryl. All incisions were closed with 4-0 Monocryl subcuticular sutures and Steri-Strips. Dry sterile dressings were applied. The patient tolerated the procedure well and transferred to the recovery room in stable condition. Estimated blood loss for the procedure was 10 mL. Phyllis Hickey MD
--- NOTE | 2018-04-02 07:09 | CP.PCM.DIS ---
Provider - Provider Date of Admission: 04/01/18 04:15 Attending physician: Phyllis Hickey MD Hospital Course - Lab Results Lab Results: Most Recent Lab Values WBC 5.9 K/uL (4.8-10.8) 04/01/18 06:40 RBC 4.34 Mil/uL (3.80-5.20) 04/01/18 06:40 Hgb 13.1 g/dL (11.0-16.0) 04/01/18 06:40 Hct 38.0 % (34.0-47.0) 04/01/18 06:40 MCV 87.5 fL (81.0-99.0) 04/01/18 06:40 MCH 30.2 pg (27.0-31.0) 04/01/18 06:40 MCHC 34.5 g/dL (33.0-37.0) 04/01/18 06:40 RDW 13.7 % (11.5-14.5) 04/01/18 06:40 Plt Count 298 K/uL (130-400) 04/01/18 06:40 MPV 7.9 fL (7.2-11.7) 04/01/18 06:40 Neut % (Auto) 59.0 % (50.0-75.0) 04/01/18 06:40 Lymph % (Auto) 27.7 % (20.0-40.0) 04/01/18 06:40 [place] % (Auto) 10.9 % (0.0-10.0) H 04/01/18 06:40 Eos % (Auto) 1.3 % (0.0-4.0) 04/01/18 06:40 Baso % (Auto) 1.1 % (0.0-2.0) 04/01/18 06:40 Neut # (Auto) 3.5 K/uL (1.8-7.0) 04/01/18 06:40 Lymph # (Auto) 1.6 K/uL (1.0-4.3) 04/01/18 06:40 [place] # (Auto) 0.6 K/uL (0.0-0.8) 04/01/18 06:40 Eos # (Auto) 0.1 K/uL (0.0-0.7) 04/01/18 06:40 Baso # (Auto) 0.1 K/uL (0.0-0.2) 04/01/18 06:40 Sodium 142 mmol/L (132-148) 04/01/18 06:40 Potassium 3.8 mmol/L (3.6-5.2) 04/01/18 06:40 Chloride 106 mmol/L (98-107) 04/01/18 06:40 Carbon Dioxide 21 mmol/L (22-30) L 04/01/18 06:40 Anion Gap 19 (10-20) 04/01/18 06:40 BUN 7 mg/dL (7-17) 04/01/18 06:40 Creatinine 0.6 mg/dL (0.7-1.2) L 04/01/18 06:40 Est GFR ( Amer) > 60 04/01/18 06:40 Est GFR (Non-Af Amer) > 60 04/01/18 06:40 Random Glucose 98 mg/dL (65-105) 04/01/18 06:40 Calcium 9.0 mg/dl (8.6-10.4) 04/01/18 06:40 Phosphorus 4.4 mg/dL (2.5-4.5) 04/01/18 06:40 Magnesium 1.9 mg/dL (1.6-2.3) 04/01/18 06:40 Total Bilirubin 1.6 mg/dL (0.2-1.3) H 04/01/18 06:40 AST 1082 U/L (14-36) H 04/01/18 06:40 ALT 613 U/L (9-52) H D 04/01/18 06:40 Alkaline Phosphatase 203 U/L (38-126) H D 04/01/18 06:40 Total Protein 7.2 g/dL (6.3-8.3) 04/01/18 06:40 Albumin 4.3 g/dL (3.5-5.0) 04/01/18 06:40 Globulin 2.9 gm/dL (2.2-3.9) 04/01/18 06:40 Albumin/Globulin Ratio 1.5 (1.0-2.1) 04/01/18 06:40 Lipase 80 U/L (23-300) 03/31/18 22:28 Urine Color Yellow (YELLOW) 03/31/18 21:54 Urine Clarity Clear (Clear) 03/31/18 21:54 Urine pH 5.0 (5.0-8.0) 03/31/18 21:54 Ur Specific [place] 1.018 (1.003-1.030) 03/31/18 21:54 Urine Protein Negative mg/dL (NEGATIVE) 03/31/18 21:54 Urine Glucose (UA) Normal mg/dL (Normal) 03/31/18 21:54 Urine Ketones Negative mg/dL (NEGATIVE) 03/31/18 21:54 Urine Blood Negative (NEGATIVE) 03/31/18 21:54 Urine Nitrate Negative (NEGATIVE) 03/31/18 21:54 Urine Bilirubin Negative (NEGATIVE) 03/31/18 21:54 Urine Urobilinogen 2.0 mg/dL (0.2-1.0) H 03/31/18 21:54 Ur Leukocyte Esterase Trace Saritha/uL (Negative) 03/31/18 21:54 Urine WBC (Auto) 1 /hpf (0-5) 03/31/18 21:54 Urine RBC (Auto) < 1 /hpf (0-3) 03/31/18 21:54 Ur Squamous Epith Cells 7 /hpf (0-5) H 03/31/18 21:54 Urine HCG, Qual Negative (NEGATIVE) 04/01/18 12:29 Discharge Exam - Head Exam Head Exam: ATRAUMATIC, NORMOCEPHALIC Discharge Plan - Follow Up Plan Condition: FAIR Disposition: HOME/ ROUTINE
[2018-04-02 07:23] LABS: BASO % 0.5 % (0.0-2.0); EOS # 0.2 K/uL (0.0-0.7); HEMOGLOBIN 12.7 g/dL (11.0-16.0); LYMPH # 1.7 K/uL (1.0-4.3); LYMPH % 20.6 % (20.0-40.0); MEAN CELL VOLUME 87.8 fL (81.0-99.0); MEAN CORPUSCULAR HEMOGLOBIN 30.3 pg (27.0-31.0); MEAN CORPUSCULAR HGB CONC 34.6 g/dL (33.0-37.0); MEAN PLATELET VOLUME 8.1 fL (7.2-11.7); MONO # 0.4 K/uL (0.0-0.8); MONO % 5.4 % (0.0-10.0); NEUT # 5.8 K/uL (1.8-7.0); NEUT % 70.5 % (50.0-75.0); RBC 4.18 Mil/uL (3.80-5.20); RED CELL DISTRIBUTION WIDTH 13.7 % (11.5-14.5); WHITE BLOOD COUNT 8.2 K/uL (4.8-10.8)
[2018-04-02 07:50] LABS: ALB/GLOB RATIO 1.6 (1.0-2.1); ALT/SGPT 550 U/L (9-52); AST/SGOT 340 U/L (14-36); BLOOD UREA NITROGEN 5 mg/dL (7-17); CALCIUM 8.9 mg/dl (8.6-10.4); GFR NON-AFRICAN AMERICAN > 60
[2018-04-02 08:07] VITALS: BP 101/66; PULSE 73; TEMP 98.7
[2018-04-02] MEDS: Pantoprazole 40 mg EC Tab PO SCH (09:34)
[2018-04-02] MEDS ORDERED: Potassium Chloride 20 mEq ER Tab PO ONE ×2 (11:30→11:56)
== END 2018-04-02 14:20 | disposition home or self-care (01) ==
LOC: C.ER 20:42 → INTOOBSV 04-01 04:15 → C.3T 04-01 04:15
PROVIDERS: ADMIT Specialist; ATTEND Specialist
DX: K80.10 Calculus of gallbladder with chronic cholecystitis without obstruction (principal)
CPT/HCPCS: 36415; 47562; 74177; 76705; 80053; 81001; 83690; 83735; 84100; 84703; 85025; 88304; 96360; 96365; 96374; 99285; C9113; G0378; J1170; J1200; J2250; J2270; J2405; J2543; J2704; J3010; J7030; J7040; J7120; Q9967

== ENCOUNTER 2018-10-07 06:53 | Day surgery (SDC) | payer OTHER ==
[2018-09-01 10:27] VITALS: BMI 21.7
[2018-10-07] MEDS ORDERED: Propofol 10 mg/ml Inj (20 ML) ONE (09:24)
[2018-10-07] MEDS ORDERED: Lactated Ringer's 500 ML IV SCH (09:30)
[2018-10-07] MEDS ORDERED: Lactated Ringer's 500 ML IV ONE ×2 (09:31)
--- NOTE | 2018-10-07 09:39 | CP.SDSHP ---
Same Day Surgery H & P - History Proposed Procedure: egd Pre-Op Diagnosis: persistent H pylori. heartburn. epigastric pain - Previous Medical/Surgical History Misc: Other (H pylori infection treated x2) Previous Surgical History: Lap Amna - Allergies Allergies: Allergies ibuprofen Allergy (Intermediate, Verified 03/31/18 20:57) SKIN RASHES - Physical Exam Vital Signs: Vital Signs 10/07/18 10/07/18 07:16 09:32 Temperature 98.9 F Pulse Rate 88 66 Respiratory 18 4 L Rate Blood Pressure 107/75 111/68 O2 Sat by Pulse 100 100 Oximetry Mental Status: Alert & Oriented x3 Neuro: WNL Heart: WNL Lungs: WNL GI: WNL - Impression Impression: epigastric pain. heartburn. H pylori gastritis Pt. Evaluated Today:Candidate for Anesthesia & Procedure: Yes - Date & Time Date: 10/07/18 Time: 09:39 Short Stay Discharge - Short Stay Discharge Admitting Diagnosis/Reason for Visit: EPIGASTRIC PAIN / HEARTBURN / HELICOBACTER PYLORI Disposition: HOME/ ROUTINE
[2018-10-07 10:22] VITALS: TEMP 97.8
[2018-10-07 11:09] VITALS: RESP 17; O2SAT 98
[2018-10-07 11:16] VITALS: BP 97/53; PULSE 71
== END 2018-10-07 11:00 | disposition home or self-care (01) ==
LOC: C.ENDO 06:53
PROVIDERS: ATTEND Internal Medicine Gastroenterology
DX: K21.0 Gastro-esophageal reflux disease with esophagitis (principal); R10.13 Epigastric pain; K44.9 Diaphragmatic hernia without obstruction or gangrene; B96.81 Helicobacter pylori [H. pylori] as the cause of diseases classified elsewhere; K29.70 Gastritis, unspecified, without bleeding; D72.820 Lymphocytosis (symptomatic)
CPT/HCPCS: 43239; 84703; 88305; 88312; 88313; 88342; J2704; J7120